=== PATIENT | female | born 1970 | race Caucasian/White ===

== ENCOUNTER 2018-04-03 20:20 | Emergency (ER) | payer OTHER ==
[2018-04-03 20:33] VITALS: BP 129/77; PULSE 66; TEMP 98.9; BMI 28.0
[2018-04-03] MEDS ORDERED: SODIUM CHLORIDE 0.9% 1000 ML INFUS.BAG IV ONE (20:39)
[2018-04-03] MEDS ORDERED: ACETAMINOPHEN 1000 MG/100 ML VIAL (NON FORMULARY) IVPB ONE (20:39)
[2018-04-03] MEDS ORDERED: morphine CARPU-JECT 4 MG/1 ML DISP.SYRIN IVPUSH ONE (20:39)
[2018-04-03] MEDS ORDERED: morphine SULFATE 4 MG/ML VIAL ONE (20:47)
[2018-04-03] MEDS ORDERED: ACETAMINOPHEN INJECTION 100 ML IVPB ONE (20:47)
--- NOTE | 2018-04-03 20:53 | PDOC ---
History of Present Illness - General History Source: Patient Exam Limitations: No Limitations - History of Present Illness Initial Comments: 04/03/18 20:54 CC: Right upper quadrant and right flank pain. HPI: The patient is a 47 year old female, with a significant past medical history of gastroparesis and hypothyroidism, who presents to the emergency department with , 2 days of worsening right sided back pain and right upper quadrant pain. As per patient, her pain onset last night as right flank pain that she believed was a pulled muscle. She took Advil and used a heating pad, with minimal relief. Today she notes the pain began to radiate to her right upper quadrant abdomen, worse in the RUQ. She endorses mild nausea without emesis. She took Tums for the RUQ pain and nausea, without relief, prompting her visit to the ER tonight. She denies recent fevers, chills, headache or dizziness. She denies recent vomit , diarrhea or constipation. She denies recent dysuria, frequency, urgency or hematuria. She denies recent chest pain or shortness of breath. Allergies: NKDA Past surgical history: None reported. Social history: Nonsmoker. Denies EtOH use and recreational drug use. Primary Care Physician: Dr. Gaming <Eugenie Barajas - Last Filed: 04/03/18 20:54> <Donald Xiong - Last Filed: 04/04/18 00:01> - General Chief Complaint: Pain, Acute Stated Complaint: ABDOMINAL PAIN Time Seen by Provider: 04/03/18 20:23 Past History <Eugenie Barajas - Last Filed: 04/03/18 20:54> - Past Medical History COPD: No GI Disorders: Yes (GASTROPARESIS) Thyroid Disease: Yes - Suicide/Smoking/Psychosocial Hx Smoking History: Never smoked Have you smoked in the past 12 months: No Hx Alcohol Use: No Substance Use Type: None <Donald Xiong - Last Filed: 04/04/18 00:01> - Past Medical History Allergies/Adverse Reactions: Allergies Allergy/AdvReac Type Severity Reaction Status Date / Time No Known Allergies Allergy Verified 10/04/14 05:23 Home Medications: Ambulatory Orders Cholecalciferol (Vitamin D3) [Vitamin D3] 1,000 unit PO DAILY 04/03/18 Iron 18 mg PO DAILY 04/03/18 Levothyroxine [Synthroid -] 88 mcg PO DAILY 04/03/18 Multivitamin/Iron/Folic Acid [Centrum Adults Tablet] 1 each PO DAILY 04/03/18 Ondansetron [Zofran Odt -] 4 mg SL TID #21 od.tablet 04/03/18 Polyethylene Glycol 3350 [Miralax (For Daily Use) -] 17 gm PO DAILY 04/03/18 Review of Systems - Review of Systems Able to Perform ROS?: Yes Comments:: 04/03/18 20:54 ROS: A complete review of 10 out of 10 review of systems is taken and is negative apart from what is previously mentioned below and in the HPI. <Eugenie Barajas - Last Filed: 04/03/18 20:54> *Physical Exam - Vital Signs Last Vital Signs Temp Pulse Resp BP Pulse Ox 98.9 F 66 18 129/77 100 04/03/18 20:29 04/03/18 20:29 04/03/18 20:29 04/03/18 20:29 04/03/18 20:29 - Physical Exam Comments: 04/03/18 20:54 Exam: Vitals: Triage Vital signs reviewed General Appearance: no acute distress, well nourished well developed, Head: Atraumatic, normocephalic Nose: No nasal congestion Neck: Supple;No Nuchal rigidity Chest Wall: Nontender Cardiac: Regular rate and rhythm, no murmurs, no rubs, no gallops, Lungs: Clear to auscultation bilateral, good air movement bilaterally, +Abdomen: Right upper quadrant and right flank tenderness. Soft, nondistended, normal bowel sounds. Rectal: Exam deferred Extremities: Full range of motion to all extremities, no cyanosis, clubbing, or edema Skin: Warm and dry, no rashes or lesions, no petechiae Neuro: AOX3; Cranial Nerves 2-12 grossly intact, Strength intact to all extremities, Sensation intact to all extremities Psych: normal mood, normal affect <Eugenie Barajas - Last Filed: 04/03/18 20:54> - Vital Signs Last Vital Signs Temp Pulse Resp BP Pulse Ox 98.9 F 66 18 129/77 100 04/03/18 20:29 04/03/18 20:29 04/03/18 20:29 04/03/18 20:29 04/03/18 20:29 <Donald Xiong - Last Filed: 04/04/18 00:01> ED Treatment Course - Medications Given in the ED: ED Medications Discontinued Medications Generic Name Dose Route Start Last Admin Trade Name Freq PRN Reason Stop Dose Admin Acetaminophen 1,000 mg 04/03/18 20:39 04/03/18 20:51 Ofirmev Injection - IVPB 04/03/18 20:40 1,000 mg ONCE ONE Administration Morphine Sulfate 4 mg 04/03/18 20:39 04/03/18 20:51 Morphine Injection - IVPUSH 04/03/18 20:40 4 mg ONCE ONE Administration Sodium Chloride 1,000 ml 04/03/18 20:39 04/03/18 20:51 Normal Saline - IV 04/03/18 20:40 1,000 ml ONCE ONE Administration <Eugenie Barajas - Last Filed: 04/03/18 20:54> - LABORATORY CBC & Chemistry Diagram: 04/03/18 20:40 04/03/18 20:40 - RADIOLOGY Radiology Studies Ordered: Category Date Time Status ABDOMEN US [US] Stat Ultrasound 04/03/18 20:39 Ordered - Medications Given in the ED: ED Medications Discontinued Medications Generic Name Dose Route Start Last Admin Trade Name Freq PRN Reason Stop Dose Admin Acetaminophen 1,000 mg 04/03/18 20:39 04/03/18 20:51 Ofirmev Injection - IVPB 04/03/18 20:40 1,000 mg ONCE ONE Administration Morphine Sulfate 4 mg 04/03/18 20:39 04/03/18 20:51 Morphine Injection - IVPUSH 04/03/18 20:40 4 mg ONCE ONE Administration Sodium Chloride 1,000 ml 04/03/18 20:39 04/03/18 20:51 Normal Saline - IV 04/03/18 20:40 1,000 ml ONCE ONE Administration <Donald Xiong - Last Filed: 04/04/18 00:01> Medical Decision Making - Medical Decision Making 04/03/18 20:55 47 year old female with history of gastroparesis and hypothyroidism presents to the ED with right upper quadrant and right flank pain. Plan is to perform: Bedside renal ultrasound Formal renal ultrasound Beta HCG CBC CMP Lipase Urinalysis Urine culture Fluids Morphine Acetaminophen <Eugenie Barajas - Last Filed: 04/03/18 20:54> - Medical Decision Making CT findings reviewed patient feels much better after antiemetics no fever no elevated white blood cell count no acute inflammatory or infectious findings on CAT scan or ultrasound History examination most consistent with either gastroparesis dyspepsia or viral GI illness. Benign repeat abdominal examination. No TTP, no rebound, no gaurding. Pt. tolerating PO Patient instructed to return to ED for any severe returning abdominal discomfort persistent vomiting or for any concerns otherwise she'll follow-up with her doctor on Thursday. Findings, the need for follow-up and strict return instructions discussed with patient. 04/03/18 23:41 <Donald Xiong - Last Filed: 04/04/18 00:01> *DC/Admit/Observation/Transfer - Attestations Scribe Attestion: 04/03/18 20:55 Documentation prepared by Eugenie Barajas, acting as medical office professional instructor for Donald Xiong MD. <Eugenie Barajas - Last Filed: 04/03/18 20:54> - Discharge Dispostion Decision to Admit order: No <Donald Xiong - Last Filed: 04/04/18 00:01> Diagnosis at time of Disposition: Nausea Abdominal pain Qualifiers: Abdominal location: upper abdomen, unspecified Qualified Code(s): R10.10 - Upper abdominal pain, unspecified - Discharge Dispostion Disposition: HOME Condition at time of disposition: Stable - Prescriptions Prescriptions: Ondansetron [Zofran Odt -] 4 mg SL TID #21 od.tablet - Referrals Referrals: Prince Gaming [Primary Care Provider] - - Patient Instructions Printed Discharge Instructions: Nausea and Vomiting-Adult Additional Instructions: Drink plenty of fluids. Zofran as prescribed for nausea return to the emergency department for any persistent vomiting inability tolerate fluids or any return of urine abdominal pain otherwise follow-up with her doctor on Thursday. - Post Discharge Activity Forms/Work/School Notes: Back to Work
[2018-04-03 21:05] LABS: BASO % 0.3 % (0-2.0); EOS % 0.9 % (0-4.5); HEMATOCRIT 38.1 % (32.4-45.2); HEMOGLOBIN 12.6 GM/dl (10.7-15.3); LYMPH % 20.9 % (8-40); MCH 29.9 pg (25.7-33.7); MCHC 33.1 g/dl (32.0-36.0); MEAN CELL VOLUME 90.2 fl (80-96); MONO % 7.4 % (3.8-10.2); NEUT % 70.5 % (42.8-82.8); PLATELET COUNT 286 K/MM3 (134-434); RBC 4.22 M/mm3 (3.60-5.2); RDW 15.8 % (11.6-15.6); WHITE BLOOD COUNT 6.5 K/mm3 (4.0-10.8)
[2018-04-03 21:11] LABS: ALBUMIN 3.7 g/dl (3.5-5.0); ALK PHOS 49 U/L (32-92); ANION GAP 6 MMOL/L (8-16); BILIRUBIN,TOTAL 0.4 mg/dl (0.2-1.0); BLOOD UREA NITROGEN 16 mg/dl (7-18); CALCIUM 8.3 mg/dl (8.4-10.2); CHLORIDE 100 mmol/L (98-107); CO2 26 mmol/L (22-28); CREATININE 0.7 mg/dl (0.6-1.3); GLUCOSE,RANDOM 101 mg/dl (74-106); POTASSIUM 3.7 mmol/L (3.5-5.1); SGOT/AST 20 U/L (10-42); SGPT/ALT 15 U/L (10-40); SODIUM 132 mmol/L (136-145); TOT PROT 6.7 g/dl (6.4-8.3)
[2018-04-03 21:52] LABS: LIPASE 183 U/L (73-393)
[2018-04-03] MEDS ORDERED: METOCLOPRAMIDE HCL INJECTION 10 MG/2 ML VIAL IVPB ONE (22:00)
[2018-04-03 22:12] LABS: PH,URINE 7.5 (4.5-8); URINE APPEARANCE Clear; URINE BILIRUBIN Negative (NEGATIVE); URINE COLOR Yellow; URINE GLUCOSE (UA) Negative (NEGATIVE); URINE KETONE Negative (NEGATIVE); URINE LEUK ESTERASE Negative (NEGATIVE); URINE NITRITE Negative (NEGATIVE); URINE PROTEIN Negative (NEGATIVE); URINE UROBILINOGEN 0.2 (0.2-1.0)
[2018-04-03 22:43] LABS: EPI CELLS FEW /HPF
== END 2018-04-03 23:50 | disposition home or self-care (01) ==
LOC: FER 20:20
PROC: 3E033NZ Introduction of Analgesics, Hypnotics, Sedatives into Peripheral Vein, Percutaneous Approach (ICD-10-PCS; principal; 2018-04-03)
PROC: 3E033GC Introduction of Other Therapeutic Substance into Peripheral Vein, Percutaneous Approach (ICD-10-PCS; 2018-04-03)
PROC: 3E033NZ Introduction of Analgesics, Hypnotics, Sedatives into Peripheral Vein, Percutaneous Approach (ICD-10-PCS; 2018-04-03)
PROC: 3E0337Z Introduction of Electrolytic and Water Balance Substance into Peripheral Vein, Percutaneous Approach (ICD-10-PCS; 2018-04-03)
DX: R11.0 Nausea (principal); R10.10 Upper abdominal pain, unspecified
CPT/HCPCS: 36415; 74177-TC; 76700-TC; 80053; 81003; 81015; 83690; 84702; 85025; 87086; 99283-25; J0131; J7030